=== PATIENT | female | born 1970 | race African-American/Black ===

== ENCOUNTER 2017-03-16 16:36 | Emergency (ER) | payer MEDICAID ==
[~2017-03-16] VITALS: Ht 152.4 cm; Wt 95.0 kg
[2017-03-16 16:37] VITALS: BP 145/71; PULSE 81; RESP 15; TEMP 98.1; O2SAT 100
--- NOTE | 2017-03-16 16:42 | PD ---
Physical Exam Time Seen by Provider: 16:41 Narrative 46 y/o female with bilateral heel pain, worse in the mornings, worse when standing. Vital signs reviewed. Seen at triage desk. Awaiting bed placement. Data Data Last Documented VS Vital Signs Date Time Temp Pulse Resp B/P Pulse Ox O2 Delivery O2 Flow Rate FiO2 03/16/17 16:37 98.1 81 15 145/71 100 MDM Medical Record Reviewed: Yes Supervised Visit with MAGDA: Ang Lamb Mar 16, 2017 16:42
--- NOTE | 2017-03-16 17:51 | PD ---
HPI Chief Complaint: Pain: Acute or Chronic Time Seen by Provider: 17:51 Travel History International Travel<30 days: No Contact w/Intl Traveler<30days: No Traveled to known affect area: No History of Present Illness HPI 46-year-old female presents to the ED for evaluation of bilateral foot pain 2 weeks. Described as in the heel, shooting, worsened by ambulation, being barefoot and wearing certain shoes. Left greater than right. Patient states most painful for steps in the morning. She denies injury to the feet. She denies chronic health problems. She denies numbness, tingling, weakness, limitations to range of motion of the extremities. He describes similar pain intermittently for "a while." No treatment attempted at home. PFSH Past Medical History ?: Not Social History Tobacco Use: No Allergies-Medications (Allergen,Severity, Reaction): Coded Allergies: No Known Allergies (Unverified , 03/16/17) Reported Meds & Prescriptions Reported Meds & Active Scripts Active Naprosyn (Naproxen) 500 Mg Tab 500 Mg PO BID Review of Systems Except as stated in HPI: all other systems reviewed are Neg Physical Exam Narrative GENERAL: Well-nourished, well-developed pleasant AA female in no acute distress. SKIN: Focused skin assessment warm/dry. HEAD: Normocephalic. EYES: No scleral icterus. No injection or drainage. NECK: Supple, trachea midline. No JVD or lymphadenopathy. CARDIOVASCULAR: Regular rate and rhythm without murmurs, gallops, or rubs. RESPIRATORY: Breath sounds equal bilaterally. No accessory muscle use. GASTROINTESTINAL: Abdomen soft, non-tender, nondistended. MUSCULOSKELETAL: No cyanosis, or edema. There is tenderness to palpation of the plantar fascia and the calcaneal area with dorsiflexion of the feet bilaterally. BACK: Nontender without obvious deformity. No CVA tenderness. Data Data Last Documented VS Vital Signs Date Time Temp Pulse Resp B/P Pulse Ox O2 Delivery O2 Flow Rate FiO2 03/16/17 16:37 98.1 81 15 145/71 100 Orders Ketorolac Inj (Toradol Inj) (03/16/17 18:15) MDM Medical Decision Making Medical Screen Exam Complete: Yes Emergency Medical Condition: Yes Differential Diagnosis Plantar fasciitis versus heel spurs versus osteoarthritis versus other Narrative Course 46-year-old female presents to the ED for evaluation of bilateral foot pain 2 weeks. Described as in the heel, shooting, worsened by ambulation, being barefoot and wearing certain shoes. Left greater than right. Patient states most painful for steps in the morning. Vitals reviewed. There is tenderness to palpation of the plantar fascia in the calcaneal area with dorsiflexion of the feet bilaterally. This is classic plantar fasciitis. Patient was administered IM Toradol. She was provided a course of anti-inflammatories to begin tomorrow. We discussed symptomatic care and the importance of proper footwear. She is instructed take the medication as prescribed. She was provided with a list of helpful exercises. She is instructed to follow-up with the truck driver helper if symptoms persist. She indicated understanding of the instructions and is agreeable to the care plan. She is stable and discharged home. Diagnosis Primary Impression: Plantar fasciitis, bilateral Referrals: Editing Clerk Patient Instructions: General Instructions, Plantar Fasciitis (ED), Plantar Fasciitis Exercises (GEN) Additional Instructions: Rest, ice, elevate the extremity. Apply ice no longer than 10-15 minutes per hour a few times a day. Antiinflammatories as prescribed. BEGIN TOMORROW. Return to normal, gentle activity as tolerated. Wear supportive shoes as discussed. No running, jumping activities for the next few weeks. Follow up with podiatry Return to the ED for any urgent or emergent medical condition. Med/Other Pt SpecificInfo: Prescription(s) given Scripts Naproxen (Naprosyn)500 Mg Gur474 Mg PO BID #28 TAB Ref 0 Prov:Humza Oliveira MD 03/16/17 Disposition: 01 DISCHARGE HOME Condition: Stable Flori Webb Mar 16, 2017 17:51
[2017-03-16] MEDS ORDERED: NAPR500 PO (18:05)
[2017-03-16] MEDS ORDERED: KETOROLAC TROMETHAMINE 60 MG/2 ML (IM) VIAL IM ONE (18:15)
== END 2017-03-16 18:52 | disposition home or self-care (01) ==
LOC: NEPK 16:36
DX: M72.2 Plantar fascial fibromatosis (principal)
CPT/HCPCS: 96372; 99284; J1885

== ENCOUNTER 2017-09-16 23:38 | Emergency (ER) | payer MEDICAID ==
[~2017-09-16] VITALS: Ht 152.4 cm; Wt 95.0 kg
[~2017-09-16 23:38] MED LIST: NAPR500 PO
[2017-09-16 23:40] VITALS: BP 149/81; PULSE 94; RESP 18; TEMP 99.8; O2SAT 100
[2017-09-17] MEDS ORDERED: AMPICILLIN-SULBACTAM INJ 3 GM in SODIUM CHLORIDE 0.9% INJ 100 ML IV ONE (00:30)
[2017-09-17] MEDS ORDERED: SODIUM CHLOR 0.9% 1000 ML INJ 1,000 ML IV ONE ×2 (00:30)
[2017-09-17] MEDS ORDERED: KETOROLAC TROMETHAMINE 30 MG/ML (IVP) VIAL IV PUSH ONE (00:30)
[2017-09-17] MEDS ORDERED: DEXAMETHASONE SOD PHOS 4 MG/ML VIAL IV PUSH ONE (00:30)
--- NOTE | 2017-09-17 00:34 | PD ---
HPI Chief Complaint: Cold / Flu Symptoms Time Seen by Provider: 00:23 Travel History International Travel<30 days: No Contact w/Intl Traveler<30days: No Traveled to known affect area: No History of Present Illness HPI The patient is a 47-year-old [place] female who presents to the emergency department for cough and cold symptoms of 3 days' duration. The patient states her symptoms started on Thursday with headache, sore throat, nasal drainage. The patient then had a small amount of nasal drainage with blood in it as well some cough with a small amount of blood in it. The patient now complains of a sore throat, pain with swallowing, and anterior cervical swelling which is painful. The patient also complains of bodyaches but denies any nausea, vomiting, diarrhea, or abdominal pain. Symptoms are moderate, there are no current alleviating or exacerbating factors. PFSH Past Medical History Medical History: Denies Significant Hx Diminished Hearing: No Tetanus Vaccination: Unknown Influenza Vaccination: No ?: Not LMP: 08/31/2017 Past Surgical History Surgical History: No Previous Surgery Social History Alcohol Use: No Tobacco Use: No Substance Use: No Allergies-Medications (Allergen,Severity, Reaction): Coded Allergies: No Known Allergies (Unverified Adverse Reaction, Unknown, 09/16/17) Reported Meds & Prescriptions Reported Meds & Active Scripts Active No Active Prescriptions or Reported Medications Review of Systems Except as stated in HPI: all other systems reviewed are Neg General / Constitutional: Positive: Fever HENT: Positive: Sore Throat, Congestion Cardiovascular: No: Chest Pain or Discomfort Respiratory: Positive: Cough Gastrointestinal: No: Nausea, Vomiting, Abdominal Pain Genitourinary: No: Dysuria Musculoskeletal: Positive: Myalgias Skin: No Rash Physical Exam Narrative GENERAL: Awake, alert, pleasant 47-year-old female who appears her stated age and is in no acute respiratory distress. SKIN: Focused skin assessment warm/dry. HEAD: Atraumatic. Normocephalic. EYES: Pupils equal and round. No scleral icterus. No injection or drainage. ENT: No nasal bleeding or discharge. Oropharynx reveals enlarged tonsils bilaterally with erythema and white exudate. NECK: Trachea midline. No JVD. Anterior cervical lymphadenopathy that is mobile and tender. CARDIOVASCULAR: Regular rate and rhythm. No murmur appreciated. RESPIRATORY: No accessory muscle use. Clear to auscultation. Breath sounds equal bilaterally. GASTROINTESTINAL: Abdomen soft, non-tender, nondistended. MUSCULOSKELETAL: No obvious deformities. No clubbing. No cyanosis. No edema. NEUROLOGICAL: Awake and alert. No obvious cranial nerve deficits. Motor grossly within normal limits. Normal speech. PSYCHIATRIC: Appropriate mood and affect; insight and judgment normal. Data Data Last Documented VS Vital Signs Date Time Temp Pulse Resp B/P (MAP) Pulse Ox O2 Delivery O2 Flow Rate FiO2 09/16/17 23:40 99.8 94 18 149/81 (103) 100 Room Air Orders Orders Influenzae A/B Antigen (09/17/17 00:27) Sodium Chlor 0.9% 1000 Ml Inj (Ns 1000 M (09/17/17 00:30) Sodium Chlor 0.9% 1000 Ml Inj (Ns 1000 M (09/17/17 00:30) Dexamethasone Inj (Decadron Inj) (09/17/17 00:30) Ketorolac Inj (Toradol Inj) (09/17/17 00:30) Basic Metabolic Panel (Bmp) (09/17/17 00:27) Ampicillin-Sulbactam Inj (Unasyn Inj) (09/17/17 00:30) Labs Laboratory Tests Test 09/17/17 00:45 Blood Urea Nitrogen 7 MG/DL Creatinine 0.74 MG/DL Random Glucose 80 MG/DL Calcium Level 8.1 MG/DL Sodium Level 137 MEQ/L Potassium Level 3.7 MEQ/L Chloride Level 108 MEQ/L Carbon Dioxide Level 19.6 MEQ/L Anion Gap 9 MEQ/L Estimat Glomerular Filtration Rate 102 ML/MIN [facility] Medical Decision Making Medical Screen Exam Complete: Yes Emergency Medical Condition: Yes Medical Record Reviewed: Yes Interpretation(s) Date/Time Source Procedure Growth Status 09/17/17 00:50 Nasal Aspirate Influenza Types A,B Antigen (RADHA) - Final NEGATIVE FOR FLU A AND B ANTIGEN.... Complete Laboratory Tests Test 09/17/17 00:45 Blood Urea Nitrogen 7 MG/DL Creatinine 0.74 MG/DL Random Glucose 80 MG/DL Calcium Level 8.1 MG/DL Sodium Level 137 MEQ/L Potassium Level 3.7 MEQ/L Chloride Level 108 MEQ/L Carbon Dioxide Level 19.6 MEQ/L Anion Gap 9 MEQ/L Estimat Glomerular Filtration Rate 102 ML/MIN Differential Diagnosis Differential diagnosis includes tonsillitis, strep pharyngitis, viral pharyngitis, influenza, pneumonia, bronchitis, viral syndrome, dehydration. Narrative Course IV was established, labs are drawn and sent, and the patient was placed on cardiac telemetry monitoring and continuous pulse oximetry monitoring. The patient was administered Decadron, Toradol, Unasyn, and 2 L of IV fluids. Influenza screen was sent to lab. The patient has obvious exudative tonsillitis , most likely strep. Influenza screen is negative. Creatinine is normal. The patient was reevaluated at 2 AM, symptoms have improved. The patient be discharged home on Augmentin and a Medrol Dosepak. She is advised to drink plenty fluids and follow-up with her primary physician. Diagnosis Primary Impression: Exudative tonsillitis Patient Instructions: General Instructions Additional Instructions: Medications as directed. Plenty fluids to stay hydrated. Alternate Tylenol and Motrin for pain and fever. Follow-up with your primary physician. Med/Other Pt SpecificInfo: Prescription(s) given Scripts Methylprednisolone Dosepak (Medrol Dosepak) 4 Mg Dspk 4 MG PO DIRECTED, #1 DSPK 0 Refills Per Pharmacist direction Prov: Julio Moscoso MD 09/17/17 Amoxicillin-Clavulanate Liq (Augmentin Es-600 Liq) 600-42.9 Mg/5 Ml Susp 750 MG PO BID for Infection for 10 Days, ML 0 Refills Not for adults, adolescents, or children >/= 40kg. Not interchangeable with 200 mg/5 mL or 400 mg/5 mL due to clavulanic acid. Prov: Julio Moscoso MD 09/17/17 Disposition: DISCHARGE HOME Condition: Stable Julio Moscoso MD Sep 17, 2017 00:34
[2017-09-17 01:19] LABS: BICARBONATE 19.6 MEQ/L (21.0-32.0); CALCIUM 8.1 MG/DL (8.5-10.1); CREATININE 0.74 MG/DL (0.50-1.00)
[2017-09-17] MEDS ORDERED: AMOXSUS PO (02:05)
[2017-09-17] MEDS ORDERED: MEDR4PAK PO (02:05)
== END 2017-09-17 02:23 | disposition home or self-care (01) ==
LOC: NEPE 23:38
DX: J03.90 Acute tonsillitis, unspecified (principal)
CPT/HCPCS: 80048; 87804; 96365; 96375; 99284; J0295; J1100; J1885; J7030